=== PATIENT | female | born 1990 | race Caucasian/White ===

== ENCOUNTER 2017-09-30 21:11 | Emergency (ER) | payer OTHER ==
[~2017-09-30] VITALS: Ht 162.6 cm; Wt 127.9 kg
[~2017-09-30 21:11] MED LIST: ORTHO TRI-CYCLEN
[2017-09-30] MEDS ORDERED: ASPIRIN 81 MG CHEW TAB PO ONE (21:30)
[2017-09-30] MEDS ORDERED: CLONIDINE HCL 0.1 MG TAB PO ONE (21:30)
--- NOTE | 2017-09-30 22:02 | Diagnostic Imaging Report ---
History: Dizziness Comparison studies: None Technique: Axial images were obtained from the skull base to the vertex. Coronal and sagittal reconstructions obtained from the axial data. Findings: Scalp/skull: No abnormalities. No fractures, blastic or lytic lesions. Extra-axial spaces: No masses. No fluid collections. Brain sulci: Appropriate for age. Ventricles: Normal in size and configuration. No hydrocephalus. Parenchyma: No abnormal densities. No masses, hemorrhage, acute or chronic cortical vascular insults. Sellar/suprasellar region: No abnormalities Craniocervical junction: Patent foramen magnum. No Chiari one malformation. IMPRESSION: No abnormalities Signed by: Dr. Gustavo Chin M.D. on 09/30/2017 9:58 PM
--- NOTE | 2017-09-30 22:34 | Diagnostic Imaging Report ---
CHEST SINGLE (PORTABLE), 09/30/2017 9:29 PM Technique: CHEST SINGLE (PORTABLE) Comparison: None available. Clinical history: High blood pressure Findings: Unremarkable portable appearance of the heart, mediastinum, lungs and pleural spaces. Impression: 1. Lines/Tubes: None 2. No acute abnormality. Signed by: Dr Es Wu MD on 09/30/2017 10:30 PM
[2017-09-30 22:48] LABS: BASOPHILS % 0.5 % (0.0-1.0); EOSINOPHILS # (AUTO) 0.1 (0.0-0.4); EOSINOPHILS % 1.4 % (0.0-6.0); HEMOGLOBIN 11.3 g/dL (12.0-16.0); LYMPHOCYTES # (AUTO) 2.1 (1.0-3.2); LYMPHOCYTES % 25.4 % (18.0-39.1); MEAN CORPUSCULAR HEMOGLOBIN 26.4 pg (28-32); MEAN CORPUSCULAR HGB CONC 32.3 g/dL (31-35); MEAN CORPUSCULAR VOLUME 81.8 fL (81-99); MONOCYTES # (AUTO) 0.5 (0.2-0.8); MONOCYTES % 5.9 % (4.4-11.3); NEUTROPHILS # (AUTO) 5.5 (2.1-6.9); NEUTROPHILS % 66.3 % (38.7-80.0); PLATELET COUNT 302 x10e3/uL (140-360); RED BLOOD COUNT 4.28 x10e6/uL (3.6-5.1); RED CELL DISTRIBUTION WIDTH 14.8 % (11.7-14.4)
[2017-09-30 23:02] LABS: INR 1.04; PROTHROMBIN TIME 12.8 seconds (11.9-14.5)
[2017-09-30 23:03] LABS: PARTIAL THROMBOPLASTIN TIME 26.4 seconds (23.8-35.5)
[2017-09-30 23:06] LABS: ALANINE AMINOTRANSFERASE 11 IU/L (0-55); ALBUMIN 3.3 g/dL (3.5-5.0); ALKALINE PHOSPHATASE 82 IU/L (40-150); AMYLASE 46 U/L (25-125); ANION GAP 11.5 mmol/L (8-16); BLOOD UREA NITROGEN 13 mg/dL (7-26); BUN/CREATININE RATIO 18 (6-25); CALCIUM 8.7 mg/dL (8.4-10.2); CARBON DIOXIDE 23 mmol/L (22-29); CHLORIDE 107 mmol/L (98-107); CREATINE KINASE 75 IU/L (29-168); CREATININE, SERUM 0.71 mg/dL (0.57-1.11); EST GLOMERULAR FILTRATION RATE > 60 ML/MIN (60-); GLUCOSE 91 mg/dL (74-118); LIPASE 28 U/L (8-78); MAGNESIUM 1.9 MG/DL (1.3-2.1); POTASSIUM 3.5 mmol/L (3.5-5.1); SODIUM 138 mmol/L (136-145)
[2017-09-30] MEDS ORDERED: SODIUM CHLORIDE 0.9% 1000ML 1,000 ML IV ONE (23:15)
--- NOTE | 2017-10-01 01:02 | Diagnostic Imaging Report ---
EXAM: CTA CHEST, CTA ABD/PELVIS INDICATION: \S\FAMHX DISSECTION/AO ANEURYSM, HTN LEFT FLANK PAIN \S\[id number] \S\[id number] COMPARISON: None. TECHNIQUE: CT angiogram protocol, pre- and post-IV contrast. Chest, abdomen and pelvis were scanned utilizing a multidetector helical scanner from the lung apex to the pubic symphysis. Coronal and sagittal reformations were obtained. 3-D reconstructed images were generated using a specialized workstation. IV CONTRAST: 100 mL Isovue 300/370 FINDINGS: VASCULAR: No evidence of intramural hematoma noncontrast evaluation. No significant atherosclerotic disease. -Chest: The thoracic aorta is patent, normal in caliber. Central branch vessels are patent. -Abdomen/Pelvis: The abdominal aorta is patent, normal in caliber. The celiac axis, SMA, single bilateral renal arteries, and ANGEL are patent. Bilateral common iliac, external iliac and internal iliac and visualized common femoral and superficial femoral arteries are patent, normal in caliber. LUNGS/AIRWAYS/PLEURA: The lungs are unremarkable.. The pleural spaces are clear. HEART AND MEDIASTINUM: No lymphadenopathy. The heart is normal in size. There is no pericardial effusion. HEPATOBILIARY: No focal lesions. GALLBLADDER: Absent. SPLEEN: No splenomegaly. PANCREAS: No masses or ductal dilation. ADRENALS: No nodules. KIDNEYS/URETERS: No masses or stones. No hydronephrosis. GI TRACT: Postsurgical changes about the GE junction/stomach were with tiny hernia. No evidence of obstruction. Normal appendix. PELVIC ORGANS/BLADDER: Unremarkable. LYMPH NODES: No lymphadenopathy. PERITONEUM / RETROPERITONEUM: No free air or fluid. BONES/SOFT TISSUES: Unremarkable. Incidental tiny fat-containing umbilical hernia. IMPRESSION: No acute vascular injury or other acute abnormality. Specifically no evidence of dissection or aneurysm. Signed by: Dr Es Wu MD on 10/01/2017 12:58 AM
[2017-10-01 01:44] VITALS: BP 129/78
[2017-10-01] MEDS ORDERED: IOPAMIDOL 370 MG/ML 200 ML INFUS..BTL INJ ONE (01:59)
[2017-10-01] MEDS ORDERED: SODIUM CHLORIDE 0.9% 100 ML ONE (01:59)
== END 2017-10-01 02:49 | disposition home or self-care (01) ==
LOC: ER 21:11
DX: R42 Dizziness and giddiness (principal); I10 Essential (primary) hypertension
CPT/HCPCS: 36415; 70450; 71045; 71275; 74174; 80053; 82150; 82550; 82553; 83690; 83735; 83880; 84484; 84702; 85025; 85610; 85730; 93005; 96360; 99284; J7030; J7050; Q9967

== ENCOUNTER 2019-07-28 11:31 | Emergency (ER) | payer OTHER ==
[~2019-07-28] VITALS: Ht 162.6 cm; Wt 127.9 kg
--- OUTSIDE RECORDS SUMMARY | 2019-07-28 11:33 | XMS REPORT ---
Author Author [facility] Address Unknown Phone Unavailable Care Team Providers Care Envelope Stuffer Name Role Phone Candis OZUNA Unavailable Unavailable Payers Payer Name Policy Type Policy Number Effective Date Expiration Date Problems This patient has no known problems. Allergies, Adverse Reactions, Alerts Allergy Name Allergy Type Status Severity Reaction(s) Onset Date Inactive Date Treating Clinician Comments dexlansoprazole DA Active U 2013-05-22 00:00:00 Medications This patient has no known medications. Results Test Description Test Time Test Comments Text Results Atomic Results Result Comments GASTRIC,BIOPSY 2018-03-26 12:03:00 RUN DATE: 03/26/18 [facility] PAGE 1 RUN TIME: 1203 Specimen Inquiry RUN USER: INTERFACE PATIENT: BECKY HERNANDEZ LOC: [facility] U #: [id number] AGE/SX: 28/F ROOM: RE03/22/18[facility] DR: Dorene Palomino MD : 88 BED: DIS: STATUS: [facility] TLOC: SPEC #: [id number] RECD: 03/22/18 STATUS: MARCIA JON #: [id number] ROSCOE: 03/22/18 [facility] [address]: Dorene Palomino MD ENTERED: 03/22/18 SP TYPE: GASTRIC BX OTHR DR: Isadora Bingham MD ORDERED: GROSS COPIES TO: Isadora Bingham MD [address] [place] [place], [place] [id number] Dorene Palomino MD [address] [place] [address] PROCEDURES: GROSS (03/26/1894) TISSUES: 1. ANTRUM - BX 2. ESOPHAGUS, NOS - DISTAL BX 3. ESOPHAGUS, NOS - MIDDLE BX CLINICAL HISTORY COLLECTION DATE: 03/22/18 DIARRHEA, HEARTBURN, DYSPHAGIA FINAL DIAGNOSIS Antrum and body, biopsy: REACTIVE GASTROPATHY WITH PATCHY MILD CHRONIC INFLAMMATION NO INTESTINAL METAPLASIA SEEN NEGATIVE FOR HELICOBACTER PYLORI, GIEMSA CONTROL STAINS APPROPRIATELY NEGATIVE FOR MALIGNANCY Distal esophagus, biopsy: SEVERE ACUTE AND CHRONIC INFLAMMATION WITH ULCERATION AND REACTIVE EPITHELIAL CHANGES, MIXED SQUAMOUS ESOPHAGEAL AND GASTRIC TYPE MUCOSA NEGATIVE FOR INTESTINAL METAPLASIA, DYSPLASIA, AND MALIGNANCY Middle esophagus, biopsy: SQUAMOUS ESOPHAGEAL MUCOSA WITH MILD REACTIVE EPITHELIAL CHANGES NEGATIVE FOR METAPLASIA, DYSPLASIA, AND MALIGNANCY CONTINUED ON NEXT PAGE RUN DATE: 03/26/18 [facility] PAGE 2 RUN TIME: 1203 Specimen Inquiry RUN USER: INTERFACE ------SPEC #: [id number] PATIENT: BECKY HERNANDEZ #[id number] (Continued) FINAL DIAGNOSIS (Continued) [facility]/ D (2) [phone] MACROSCOPIC The first specimen is received in formalin, labeled with the patient's name, identified as "antrum and body", and consists of tamayo biopsy tissue measuring 0.4 cm in aggregate. An H E and a Giemsa stain will be prepared. The second specimen is received in formalin, labeled with the patient's name, identified as "distal esophagus bx", and consists of tamayo biopsy tissue measuring 0.3 cm. The third specimen is received in formalin, labeled with the patient's name, identified as "middle esophagus bx", and consists of a white biopsy fragment measuring 0.3 cm. GROSS PERFORMED AT [facility] [address] [place] [address] [phone])[phone] MICROSCOPIC MICROSCOPIC PERFORMED AT [facility] All of the stains, including any controls performed, stain appropriately. [facility] [address] [place] [phone] [phone] PERFORMING SITE Diagnosis performed at: [facility] [address] [place] [address] CONTINUED ON NEXT PAGE RUN DATE: 03/26/18 [facility] PAGE 3 RUN TIME: 1203 Specimen Inquiry RUN USER: INTERFACE SPEC #: [id number] PATIENT: BECKY HERNANDEZ #[id number] (Continued)------ Signed SIGNATURE ON FILE Cece Ramsey 03/26/18 0243 END OF REPORT CTA ABD/PELVIS [facility] [address] [address] Patient Name: BECKY HERNANDEZ MR #: [id number] : 1990 Age/Sex: 27/F Req #: [id number] Adm Physician: Ordered by: KATTY OZUNA MD Report #: [id number] Location: ER Room/Bed: Procedure: [id number] CT/CTA ABD/PELVIS Exam Date: 09/30/17 Exam Time: 2343 REPORT STATUS: Signed EXAM: CTA CHEST, CTA ABD/PELVIS INDICATION: S FAMHX DISSECTION/AO ANEURYSM, HTN LEFT FLANK PAIN S [id number] COMPARISON: None. TECHNIQUE: CT angiogram protocol, pre- and post-IV contrast. Chest, abdomen and pelvis were scanned utilizing a multidetector helical scanner from the lung apex to the pubic symphysis. Coronal and sagittal reformations were obtained. 3-D reconstructed images were generated using a specialized workstation. IV CONTRAST: 100 mL Isovue 300/370 FINDINGS: VASCULAR: No evidence of intramural hematoma noncontrast evaluation. No significant atherosclerotic disease. -Chest: The thoracic aorta is patent, normal in caliber. Central branch vessels are patent. -Abdomen/Pelvis: The abdominal aorta is patent, normal in caliber. The celiac axis, SMA, single bilateral renal arteries, and ANGEL are patent. Bilateral common iliac, external iliac and internal iliac and visualized common femoral and superficial femoral arteries are patent, normal in caliber. LUNGS/AIRWAYS/PLEURA: The lungs are unremarkable.. The pleural spaces are clear. HEART AND MEDIASTINUM: No lymphadenopathy. The heart is normal in size. There is no pericardial effusion. HEPATOBI LIARY: No focal lesions. GALLBLADDER: Absent. SPLEEN: No splenomegaly. PANCREAS: No masses or ductal dilation. ADRENALS: No nodules. KIDNEYS/URETERS: No masses or stones. No hydronephrosis. GI TRACT: Postsurgical changes about the GE junction/stomach were with tiny hernia. No evidence of obstruction. Normal appendix. PELVIC ORGANS/BLADDER: Unremarkable. LYMPH NODES: No lymphadenopathy. PERITONEUM / RETROPERITONEUM: No free air or fluid. BONES/SOFT TISSUES: Unremarkable. Incidental tiny fat-containing umbilical hernia. IMPRESSION: No acute vascular injury or other acute abnormality. Specifically no evidence of dissection or aneurysm. Signed by: Dr Flakita Wu MD on 10/01/2017 12:58 AM Dictated By: FLAKITA WU MD Transcribed By: LORENZO on 10/01/1757 COPY TO: KATTY OZUNA MD CTA CHEST [address] [address] Patient Name: BECKY HERNANDEZ MR #: [id number] : 1990 Age/Sex: 27/F Req #: [id number] Adm Physician: Ordered by: KATTY OZUNA MD Report #: [id number] Location: ER Room/Bed: Procedure: [id number] CT/CTA CHEST Exam Date: 09/30/17 Exam Time: 2343 REPORT STATUS: Signed EXAM: CTA CHEST, CTA ABD/PELVIS INDICATION: S FAMHX DISSECTION/AO ANEURYSM, HTN LEFT FLANK PAIN S [id number] COMPARISON: None. TECHNIQUE: CT angiogram protocol, pre- and post-IV contrast. Chest, abdomen and pelvis were scanned utilizing a multidetector helical scanner from the lung apex to the pubic symphysis. Coronal and sagittal reformations were obtained. 3-D reconstructed images were generated using a specialized workstation. IV CONTRAST: 100 mL Isovue 300/370 FINDINGS: VASCULAR: No evidence of intramural hematoma noncontrast evaluation. No significant atherosclerotic disease. -Chest: The thoracic aorta is patent, normal in caliber. Central branch vessels are patent. -Abdomen/Pelvis: The abdominal aorta is patent, normal in caliber. The celiac axis, SMA, single bilateral renal arteries, and ANGEL are patent. Bilateral common iliac, external iliac and internal iliac and visualized common femoral and superficial femoral arteries are patent, normal in caliber. LUNGS/AIRWAYS/PLEURA: The lungs are unremarkable.. The pleural spaces are clear. HEART AND MEDIASTINUM: No lymphadenopathy. The heart is normal in size. There is no pericardial effusion. HEPATOBILIARY: No focal lesions. GALLBLADDER: Absent. SPLEEN: No splenomegaly. PANCREAS: No masses or ductal dilation. ADRENALS: No nodules. KIDNEYS/URETERS: No masses or stones. No hydronephrosis. GI TRACT: Postsurgical changes about the GE junction/stomach were with tiny hernia. No evidence of obstruction. Normal appendix. PELVIC ORGANS/BLADDER: Unremarkable. LYMPH NODES: No lymphadenopathy. PERITONEUM / RETROPERITONEUM: No free air or fluid. BONES/SOFT TISSUES: Unremarkable. Incidental tiny fat-containing umbilical hernia. IMPRESSION: No acute vascular injury or other acute abnormality. Specifically no evidence of dissection or aneurysm. Signed by: Dr Flakita Wu MD on 10/01/2017 12:58 AM Dictated By: FLAKITA WU MD Transcribed By: LORENZO on 10/01/1757 COPY TO: KATTY OZUNA MD CT BRAIN WO [address] [address] Patient Name: BECKY HERNANDEZ MR #: [id number] : 1990 Age/Sex: 27/F Req #: [id number] Adm Physician: Ordered by: CJ CAMARGO EXT JS DEVELOPER Report #: [id number] Location: ER Room/Bed: Procedure: [id number] CT/CT BRAIN WO Exam Date: 09/30/17 Exam Time: 2140 REPORT STATUS: Signed History: Dizziness Comparison studies: None Technique: Axial images were obtained from the skull base to the vertex. Coronal and sagittal reconstructions obtained from the axial data. Findings: Scalp/skull: No abnormalities. No fractures, blastic or lytic lesions. Extra-axial spaces: No masses. No fluid collections. Brain sulci: Appropriate for age. Ventricles: Normal in size and configuration. No hydrocephalus. Parenchyma: No abnormal densities. No masses, hemorrhage, acute or chronic cortical vascular insults. Sellar/suprasellar region: No abnormalities Craniocervical junction: Patent foramen magnum. No Chiari one malformation. IMPRESSION: No abnormalities Signed by: Dr. Gustavo Chin M.D. on 09/30/2017 9:58 PM Dictated By: GUSTAVO CHIN MD, MD 57 Transcribed By: LORENZO on 09/30/172157 COPY TO: CJ CAMARGO EXT JS DEVELOPER CHEST SINGLE (PORTABLE) [place] [address] Patient Name: BECKY HERNANDEZ MR #: [id number] : 1990 Age/Sex: 27/F Req #: [id number] Adm Physician: Ordered by: CJ CAMARGO EXT JS DEVELOPER Report #: [id number] Location: ER Room/Bed: Procedure: [id number] DX/CHEST SINGLE (PORTABLE) Exam Date: 09/30/17 Exam Time: 2150 REPORT STATUS: Signed CHEST SINGLE (PORTABLE), 09/30/2017 9:29 PM Technique: CHEST SINGLE (PORTABLE) Comparison: None available. Clinical history: High blood pressure Findings: Unremarkable portable appearance of the heart, mediastinum, lungs and pleural spaces. Impression: 1. Lines/Tubes: None 2. No acute abnormality. Signed by: Dr Flakita Wu MD on 09/30/2017 10:30 PM Dictated By: FLAKITA WU MD 29 Transcribed By: LORENZO on 09/30/172229 COPY TO: CJ CAMARGO NP
[2019-07-28 11:42] VITALS: BP 144/98
== END 2019-07-28 11:49 | disposition home or self-care (01) ==
LOC: ER 11:31
DX: K08.89 Other specified disorders of teeth and supporting structures (principal)
CPT/HCPCS: 99282

== ENCOUNTER → 2020-04-29 | Outpatient (CLI) | payer OTHER ==
--- NOTE | 2020-04-29 15:52 | Diagnostic Imaging Report ---
Right foot, 3 views INDICATION: ^[id number] ^1247 ^RIGHT FOOT PAIN Comparison: None available. Discussion: Multiple views of the right foot are negative for an acute displaced fracture or dislocation. Joint spaces are well-maintained. Prominent plantar calcaneal spur is noted. Negative for tibiotalar joint effusion. IMPRESSION: Negative for acute displaced fracture or dislocation of the right foot. Nonspecific prominent plantar calcaneal spur is noted. Signed by: Reji Bingham MD on 04/29/2020 3:49 PM
== END ==
LOC: RAD 12:33
PROVIDERS: ATTEND Internal Medicine
DX: M79.671 Pain in right foot (principal)